=== PATIENT | female | born 1990 | race Caucasian/White ===

== ENCOUNTER → 2016-07-24 | Outpatient (CLI) | payer MEDICAID ==
[~2016-07-24] MED LIST: PREN-92 PO
== END ==
LOC: LABN 17:52
PROVIDERS: ATTEND Family Medicine
DX: Z34.90 Encounter for supervision of normal pregnancy, unspecified, unspecified trimester (principal); N76.0 Acute vaginitis
CPT/HCPCS: 87210; 87220

== ENCOUNTER → 2016-07-31 | Outpatient (CLI) | payer MEDICAID ==
[~2016-07-31] MED LIST changes: +IBUP-1547 PO; +METR500T PO
--- NOTE | 2016-07-31 17:31 | DI ---
Indication: ITS.REASON: Z34.90 PROCEDURE: US OB POSITION: Encounter: Initial Comparison: 04/02/2016 Findings: Limited OB sonogram was performed. Findings are as follows: Position: Vertex Amniotic fluid: 12.2 cm Placenta: Anterior Cervix: Closed, 3.4 cm Heart rate: 117 Impression: Normal limited OB sonogram showing Salazar Vertex position. .
== END ==
LOC: IMA 15:52
PROVIDERS: ATTEND Family Medicine
DX: Z34.93 Encounter for supervision of normal pregnancy, unspecified, third trimester (principal)

== ENCOUNTER 2016-08-01 09:34 | Inpatient (IN) | payer MEDICAID ==
[~2016-08-01] VITALS: Ht 170.2 cm; Wt 91.0 kg
[~2016-08-01 09:34] MED LIST changes: -IBUP-1547 PO; -METR500T PO
[2016-08-01] MEDS ORDERED: METR500T PO (10:50)
[2016-08-01 11:50] VITALS: BP 128/59; PULSE 68; RESP 20; TEMP 98.1
--- OUTSIDE RECORDS SUMMARY | 2016-08-01 12:15 | XMS REPORT | Continuity of Care Document ---
Author Author [facility] Organization [facility] Address Unknown Phone Unavailable Care Team Providers Care Clinical Team Lead Name Role Phone EFRA KOCH M.D. Primary Care Physician [phone] Insurance Providers Payer Name Policy Number Subscriber Name Relationship [facility] Edie [id number] Yajaira Everett 01 Self / Same As Patient Problems Medical Problems Problem Onset Date Status Strep pharyngitis Unknown Active Strep pharyngitis Unknown Active Medications Medication Dose Route Sig Days/Qty Instructions Order Date Discontinued Date Status Neomycin/Polymyxin/Hydrocort 3 Drop EAR THREE TIMES A DAY 10 Days 10/1310/24/10 Discontinued Amoxicillin & Pot Clavulanate 875 Mg PO TWICE A DAY 20 Qty 10/15/10 Discontinued Hydrocodone-Acetaminophen 1 - 2 Tab PO FOUR TIMES DAILY 30 Qty PRN PAIN 10/15/10 03/04/11 Discontinued [None] 04/07/11 10/31/11 Discontinued Paroxetine Hcl 20 Mg PO DAILY 04/07/11 10/31/11 Discontinued Azithromycin 250 Mg PO DIRECTED 6 Qty days. 04/29/11 10/31/11 Discontinued Etonogestrel 68 Mg ID 09/15/13 Active Amoxicillin 500 Mg PO THREE TIMES A DAY For strep 10 Days 09/15/13 Active Social History Social History Problem Response Recorded Date/Time Hx Alcohol Use No 04/29/2011 11:38am Hx Substance Use No 04/29/2011 11:38am Hx Tobacco Use No 10/15/2010 11:35am Smoking Status Former smoker 09/15/2013 9:54pm Query Response Start Date Stop Date Smoking Status Former smoker Hospital Discharge Instructions No hospital discharge instructions. Plan of Care Discharge Date 09/15/13 10:36pm Instructions/Education Provided Strep Throat (ED) Fever in Adults (ED) Prescriptions See Medications Section Functional Status Query Response Date Recorded Home/Living - Prior Functional Level Independent April 27, 2014 9:40am Allergies, Adverse Reactions, Alerts Allergen Type Severity Reaction Status Last Updated CEPHALOSPORIN Allergy Unknown ITCHING Active 02/23/14 Immunizations No immunization records. Vital Signs Acute Vital Signs Vital Response Date/Time Blood Pressure 110/52 mm Hg Blood Pressure Mean 71 mm Hg Temperature (Fahrenheit) 101.3 degrees F (96.0 - 99.9) Temperature (Calculated Celsius) 38.40324 degrees C Temperature Source Oral Pulse Pulse Rate: ED 83 bpm Respiratory Rate 16 breaths per minute (10 - 20) Height (Feet) 5 ft Height (Inches) 6 in. Weight (Pounds) 168 lbs Ambulatory Vital Signs Vital Response Date/Time Height 5 ft 7 in 03/03/2012 11:28am Weight 186 lbs 03/03/2012 11:28am Blood Pressure, Sitting, Left Arm 132/66 mm Hg 03/03/2012 11:28am Body Surface Area 2.02 m2 03/03/2012 11:28am Body Mass Index 29.1 kg/m2 03/03/2012 11:28am Results Test Source Date Result Interp. Ref. Range Comments Alanine Aminotransferase (ALT/SGPT) March 22, 2013 3:35pm 12 U/L N 5- [address] EFRA KOCH [phone] Albumin March 22, 2013 3:35pm 3.0 gm/dL L 3.2-5.[address] EFRA KOCH [phone] Albumin/Globulin Ratio March 22, 2013 3:35pm 0.9 L 1.4-2.[address] EFRA KOCH [phone] Alkaline Phosphatase March 22, 2013 3:35pm 128 U/L H 35-[address] EFRA KOCH [phone] Anion Gap March 22, 2013 3:35pm 11.0 N 6-[address] EFRA KOCH [phone] Aspartate Amino Transf (AST/SGOT) March 22, 2013 3:35pm 14 U/L N 5- [address] EFRA KOCH [phone] BUN/Creatinine Ratio March 22, 2013 3:35pm [address] EFRA KOCH [phone] Basophils # (Auto) March 06, 2012 4:00pm 0.0 K/uL N 0-0.2 COMMENT: 08 Basophils (%) (Auto) March 06, 2012 4:00pm 0.3 % N 0-1 COMMENT: 08 Blood Urea Nitrogen March 22, 2013 3:35pm 7 mg/dL L 8-[address] EFRA KOCH [phone] Calcium Level March 22, 2013 3:35pm 9.5 mg/dL N 8.2-10.[address] EFRA KOCH [phone] Carbon Dioxide Level March 22, 2013 3:35pm 21 mEq/L L 22-[address] EFRA KOCH [phone] Chlamydia DNA Probe March 06, 2012 5:47pm See separate report COMMENT: 08 Chloride Level March 22, 2013 3:35pm 107 mEq/L N 98-[address] EFRA KOCH [phone] Creatinine March 22, 2013 3:35pm 0.56 mg/dL L 0.9-1.[address] EFRA KOCH [phone] Eosinophils # (Auto) March 06, 2012 4:00pm 0.3 K/uL N 0-0.8 COMMENT : 08 Eosinophils (%) (Auto) March 06, 2012 4:00pm 3.3 % N 0-7.0 COMMENT: 08 Ethyl Alcohol Level April 07, 2011 6:15am 122.8 mg/dl H 0-10 A level below 10 mg/dl should be considered negative. Free Thyroxine Index January 04, 1999 7:23am 5.30 N 3.6-14.0 Globulin March 22, 2013 3:35pm 3.5 gm/dL H 2.0-3.[address] EFRA KOCH [phone] Glucose Level January 04, 1999 7:23am 99 mg/dL N 60-100 Hematocrit March 06, 2012 4:00pm 46.5 % N 38.0-47.0 COMMENT: 08 Hemoglobin March 06, 2012 4:00pm 15.5 g/dL N 12.0-16.0 COMMENT: 08 Human Chorionic Gonadotropin, Quant March 06, 2012 4:00pm 29.88 mIU/mL INTERPRETATION:SUFFICIENT VARIABILITY EXISTS AMONG hCG CONCENTRATIONS THAT A SINGLE VALUE CANNOT BE USED TO DATE PREGNANCIES ACCURATELY, NOR CAN A SINGLE DETERMINATION BE USED TO PREDICT VIABILITY. RANGE OF EXPECTED VALUES: TIME POST CONCEPTION COMMON UNITS mIU/mL 7-10 DAYS >3.0 30 DAYS 100.0 TO 5,000.0 40 DAYS >2000.0 10 WEEKS 50,000.0 TO 140,000.0 14 WEEKS 10,000.0 TO 50,000.0 Immature Blood Cells March 06, 2012 4:00pm 0.1 K/uL N 0-0.4 COMMENT : 08 Lipase December 08, 2007 9:40am 23 U/L N 8-57 COMMENTS?ROOM 2 IV ORDERED Lymphocytes # (Auto) March 06, 2012 4:00pm 2.4 K/uL N 0.9-5.2 COMMENT: 08 Lymphocytes (%) (Auto) March 06, 2012 4:00pm 26.9 % N 16.0-44.0 COMMENT: 08 Mean Corpuscular Hemoglobin March 06, 2012 4:00pm 32.0 pg N 26.0- 33.0 COMMENT: 08 Mean Corpuscular Hemoglobin Concent March 06, 2012 4:00pm 33.3 g/dL N 31.0-36.0 COMMENT: 08 Mean Corpuscular Volume March 06, 2012 4:00pm 96.2 fL N 82.0-100.0 COMMENT: 08 Mean Platelet Volume March 06, 2012 4:00pm 7.6 fL N 7.0-11.0 COMMENT : 08 Monocytes # (Auto) March 06, 2012 4:00pm 0.6 K/uL N 0.16-1.0 COMMENT : 08 Monocytes (%) (Auto) March 06, 2012 4:00pm 6.3 % N 2.0-9.0 COMMENT: 08 Neisseria gonorrhoeae DNA Probe March 06, 2012 5:47pm See separate report COMMENT: 08 Neutrophils # (Auto) March 06, 2012 4:00pm 5.5 K/uL N 1.9-8.0 COMMENT: 08 Neutrophils (%) (Auto) March 06, 2012 4:00pm 61.6 % N 42.0-75.0 COMMENT: 08 Platelet Count March 06, 2012 4:00pm 306 K/uL N 130-400 COMMENT: 08 Potassium Level March 22, 2013 3:35pm 4.0 mEq/L N 3.5-5.[address] EFRA KOCH [phone] Random Glucose March 22, 2013 3:35pm 83 mg/dL N 65-[address] EFRA KOCH [phone] Red Blood Count March 06, 2012 4:00pm 4.84 M/uL N 4.20-5.40 COMMENT : 08 Red Cell Distribution Width March 06, 2012 4:00pm 13.2 % N 11.5-14.5 COMMENT: 08 Sodium Level March 22, 2013 3:35pm 135 mEq/L N 133-[address] EFRA KOCH [phone] Thyroid Stimulating Hormone (TSH) January 04, 1999 7:23am 3.8 uIU/ml N 0.47-6.9 Thyroxine (T4) January 04, 1999 7:23am 5.3 ug/dl L 5.5-13.5 Total Bilirubin March 22, 2013 3:35pm 0.4 mg/dL N 0.1-1.[address] EFRA KOCH [phone] Total Protein March 22, 2013 3:35pm 6.5 gm/dL N 6.0-8.[address] EFRA KOCH [phone] Triiodothyronine (T3) Uptake January 04, 1999 7:23am 31.6 % N 24.0-38.9 Urine Amorphous Sediment March 06, 2012 5:20pm 1+ COMMENT: 08 STRAIGHT CATHLab to draw N SOURCE: URINE, CLEAN CATCH Urine Appearance March 06, 2012 5:20pm Cloudy COMMENT: 08 STRAIGHT CATHLab to draw N SOURCE: URINE, CLEAN CATCH Urine Bacteria March 06, 2012 12:00am Trace /hpf H NONE COMMENT: 08SOURCE: URINE, CATHETER Urine Bilirubin March 06, 2012 5:20pm Negative NEGATIVE COMMENT: 08 STRAIGHT CATHLab to draw N SOURCE: URINE, CLEAN CATCH Urine Color March 06, 2012 5:20pm Yellow COMMENT: 08 STRAIGHT CATHLab to draw N SOURCE: URINE, CLEAN CATCH Urine Epithelial Cells March 06, 2012 5:20pm Moderate /lpf COMMENT: 08 STRAIGHT CATHLab to draw N SOURCE: URINE, CLEAN CATCH Urine Glucose (UA) March 06, 2012 5:20pm Negative NEGATIVE COMMENT : 08 STRAIGHT CATHLab to draw N SOURCE: URINE, CLEAN CATCH Urine Human Chorionic Gonadotropin April 07, 2011 6:15am Negative NEGATIVE COMMENT: 05Lab to draw N If applicable:TELEPHONE/VERBAL order by (other than ) W Urine Ketones March 06, 2012 5:20pm Negative NEGATIVE COMMENT: 08 STRAIGHT CATHLab to draw N SOURCE: URINE, CLEAN CATCH Urine Leukocyte Esterase March 06, 2012 5:20pm Negative NEGATIVE COMMENT: 08 STRAIGHT CATHLab to draw N SOURCE: URINE, CLEAN CATCH Urine Nitrate March 06, 2012 5:20pm Negative NEGATIVE COMMENT: 08 STRAIGHT CATHLab to draw N SOURCE: URINE, CLEAN CATCH Urine Occult Blood March 06, 2012 5:20pm 1+ H NEGATIVE COMMENT: 08 STRAIGHT CATHLab to draw N SOURCE: URINE, CLEAN CATCH Urine Other December 08, 2007 8:45am Rare budding yeast COMMENTS? ROOM 2` If applicable:TELEPHONE/VERBAL order by (other than ) E SOURCE: URINE, CLEAN CATCH HAS SPECIMEN BEEN OBTAINED/COLLECTED? Y Urine Protein March 06, 2012 5:20pm Negative NEGATIVE COMMENT: 08 STRAIGHT CATHLab to draw N SOURCE: URINE, CLEAN CATCH Urine RBC March 06, 2012 5:20pm 0-1 /hpf NONE COMMENT: 08 STRAIGHT CATHLab to draw N SOURCE: URINE, CLEAN CATCH Urine Specific [place] March 06, 2012 5:20pm 1.020 1.005-1.030 COMMENT: 08 STRAIGHT CATHLab to draw N SOURCE: URINE, CLEAN CATCH Urine Urobilinogen March 06, 2012 5:20pm 0.2 E.U./dL 0.2-1.0 COMMENT: 08 STRAIGHT CATHLab to draw N SOURCE: URINE, CLEAN CATCH Urine WBC March 06, 2012 5:20pm 0-1 /hpf NONE COMMENT: 08 STRAIGHT CATHLab to draw N SOURCE: URINE, CLEAN CATCH Urine pH March 06, 2012 5:20pm 7.0 4.5-8.0 COMMENT: 08 STRAIGHT CATHLab to draw N SOURCE: URINE, CLEAN CATCH White Blood Count March 06, 2012 4:00pm 9.0 K/uL N 5.0-10.0 COMMENT : 08 Lab Scanned Report March 31, 2013 2:49pm REFERENCE LAB REPORT [id number] Glomerular Filtration Rate Calc March 22, 2013 3:35pm > 60.00 mL/min MULTIPLY RESULT BY 1.210 IF THE PATIENT IS -AMERICANUnits are mL/ min/1.73 m2 > 60 Normal kidney function 30-59 Moderately decreased kidney function 15-29 Severely decreased kidney function <15 End-stage kidney failure Vaginitis Screen Culture Cervix March 06, 2012 5:47pm Urine Culture Urine,Clean Catch March 06, 2012 12:00am Procedures No known history of procedures. Encounters Encounter Location Date/Time Discharged Recurring [facility] 04/27/14 8:37am Departed Emergency Room [facility] 09/15/13 9:49pm
--- OUTSIDE RECORDS SUMMARY | 2016-08-01 12:15 | XMS REPORT | Continuity of Care Document ---
Author Author [facility] Address Unknown Phone Unavailable Care Team Providers Care Heading Repairer Name Role Phone EFRA KOCH M.D. Primary Care Physician [phone] Insurance Providers Guarantor Yajaira Everett Address [address] [place] [address] Payer [facility] Policy Number [id number] Subscriber's Name Yajaira Everett Relationship 01 Self / Same As Patient Problems Active Problems Medical Problem Onset Date Status Strep pharyngitis Unknown Acute Strep pharyngitis Unknown Acute Past Problems Medical Problem Onset Date Acute headache Unknown Frontal sinusitis Unknown Pelvic pain Unknown Unknown Medications Current Home Medications Medication Dose Units Route Directions Days Qty Instructions Start Date Amoxicillin 500 Mg Cap 500 Mg Oral Three Times A Day for Strep 10 Days 09/15/13 Amoxicillin & Pot Clavulanate (Augmentin) 875 Mg Tab 875 Mg Oral Twice A Day for Bactinf 14 Tablet 08/15/15 Etonogestrel (Implanon) 68 Mg Imp 68 Mg Intradermal 09/15/13 Tramadol Hcl 50 Mg Tab 50 Mg Oral Every 8 Hours As Needed as needed for Pain 12 Tablet 08/15/15 Past Home Medications Medication Directions Ordered Status Amoxicillin & Pot Clavulanate (Augmentin) 875 Mg Tab, 875 Mg Oral Twice A Day 10/15/10 Discontinued Azithromycin (Zithromax Z-Cruz) 1 Tab Tab, 250 Mg Oral As Directed 04/29/11 Discontinued Hydrocodone-Acetaminophen (Lortab 5/500) Tab, 1 - 2 Tab Oral Four Times Daily 10/15/10 Discontinued Neomycin/Polymyxin/Hydrocort (Cortisporin Otic) 10 Ml Susp, 3 Drop Affected Ear Three Times A Day 10/13/10 Discontinued None , 04/07/11 Discontinued Paroxetine Hcl (Paxil) 20 Mg Tab, 20 Mg Oral Daily 04/07/11 Discontinued Social History Social History Problem Response Recorded Date/Time Onset Date Status Hx Alcohol Use No 04/29/2011 11:38am Not Applicable Not Applicable Hx Substance Use No 04/29/2011 11:38am Not Applicable Not Applicable Hx Tobacco Use No 10/15/2010 11:35am Not Applicable Not Applicable Smoking Status Heavy Tobacco Smoker 05/19/2016 11:00pm Not Applicable Not Applicable Query Response Start Date Stop Date Smoking Status Heavy Tobacco Smoker Hospital Discharge Instructions Discharge Instructions Nursing Instructions Follow up Appointment #1 Call for Appointment: No Comment: keep scheduled appt Signs of Labor: Cx 5-10 mins apart/1 hour, Cx stronger/more freq, Cramping/continuous, Cramping/more intense, Low back ache, Pelvic pressure, Increase in vaginal disch, Bloody show, SROM/leaking fluid Signs of Complications: Decreased movement, Visual disturbances, Greenish vag. discharge, Headache-unusual/severe, Foul/irritating vag. disc, Increased edema, Facial edema, Muscular irritability, Convulsions, Epigastric pain, Persistent vomiting, Chills/fever, Diarrhea, Burning/freq with urin., Severe abdominal pain, Vaginal bleeding Diet: As Tolerated Other Activity: per ER instructions Plan of Care Discharge Date 05/20/16 1:34am Disposition 01 HOME, SELF-CARE Instructions/Education Provided OBG Signs of Labor Abdominal Pain (ED) Prescriptions See Medication Section Care Plan and Goals See Discharge Instructions Section Functional Status No functional status results. Allergies, Adverse Reactions, Alerts Allergen Type Severity Reaction Status Last Updated Cephalosporins ([id number]) Allergy Unknown itching Active 08/15/15 Immunizations Immunization Event Date Type Not Given Reason Dose Number Lot Number Assistant Accounting Manager Tetanus, Diphtheria Vaccine 04/07/11 Administered 1 Vital Signs Acute Vital Signs Vital Response Date/Time Blood Pressure 148/60 mm Hg 05/19/2016 10:44pm Blood Pressure Mean 89 mm Hg 05/19/2016 10:44pm Temperature (Fahrenheit) 97.9 degrees F (96.0 - 99.9) 05/19/2016 10:44pm Temperature (Calculated Celsius) 36.41448 degrees C 05/19/2016 10:44pm Temperature Source Oral 05/19/2016 10:44pm Pulse Pulse Rate: ED 79 bpm 05/19/2016 10:44pm Respiratory Rate 20 breaths per minute (10 - 20) 05/19/2016 10:44pm Height (Feet) 5 ft 08/15/2015 1:46pm Height (Inches) 6.0 in. 08/15/2015 1:46pm Weight (Pounds) 181.0 lbs 08/15/2015 1:46pm Ambulatory Vital Signs Vital Response Date/Time Height 5 ft 7 in 03/03/2012 11:28am Weight 186 lbs 03/03/2012 11:28am Blood Pressure, Sitting, Left Arm 132/66 mm Hg 03/03/2012 11:28am Body Surface Area 2.02 m2 03/03/2012 11:28am Body Mass Index 29.1 kg/m2 03/03/2012 11:28am Pulse Oximetry Pulse Oximetry 03/03/2012 11:28am Results Laboratory Results Test Name Result Units Flags Reference Collection Date/Time Result Date/ Time Comments White Blood Count 15.2 K/uL H 5.0-10.0 05/19/2016 11:15pm 05/19/2016 11: 29pm Red Blood Count 3.87 M/uL L 4.20-5.40 05/19/2016 11:15pm 05/19/2016 11: 29pm Hemoglobin 12.4 g/dL 12.0-16.0 05/19/2016 11:15pm 05/19/2016 11:29pm Hematocrit 35.5 % L 38.0-47.0 05/19/2016 11:15pm 05/19/2016 11:29pm Mean Corpuscular Volume 91.7 fL 82.0-100.0 05/19/2016 11:15pm 2016 11:29pm Mean Corpuscular Hemoglobin 32.0 pg 26.0-33.0 05/19/2016 11:15pm 2016 11:29pm Mean Corpuscular Hemoglobin Concent 34.9 g/dL 31.0-36.0 05/19/2016 11: 15pm 05/19/2016 11:29pm Red Cell Distribution Width 13.2 % 11.5-14.5 05/19/2016 11:15pm 2016 11:29pm RDW Standard Deviation 43.7 fL 36.4-46.3 05/19/2016 11:15pm 05/19/2016 11:29pm Platelet Count 255 K/uL 130-400 05/19/2016 11:1505/19/2016 11:29pm Mean Platelet Volume 9.5 fL 7.0-11.0 05/19/2016 11:15pm 05/19/2016 11: 29pm Neutrophils (%) (Auto) 71.0 % 42.0-75.0 05/19/2016 11:15pm 05/19/2016 11:29pm Lymphocytes (%) (Auto) 20.8 % 16.0-44.0 05/19/2016 11:15pm 05/19/2016 11:29pm Monocytes (%) (Auto) 5.8 % 2.0-9.0 05/19/2016 11:15pm 05/19/2016 11: 29pm Eosinophils (%) (Auto) 1.8 % 0-7.0 05/19/2016 11:15pm 05/19/2016 11: 29pm Basophils (%) (Auto) 0.3 % 0-1 05/19/2016 11:05/19/2016 11:29pm Immature Granulocyte % (Auto) 0.3 % 0-0.5 05/19/2016 11:15pm 2016 11:29pm Nucleated Red Blood Cells % 0.0 /100WBC 0-0 05/19/2016 11:15pm 2016 11:29pm Neutrophils # (Auto) 10.8 K/uL H 1.9-8.0 05/19/2016 11:15pm 05/19/2016 11:29pm Lymphocytes # (Auto) 3.2 K/uL 0.9-5.2 05/19/2016 11:15pm 05/19/2016 11: 29pm Monocytes # (Auto) 0.9 K/uL 0.16-1.0 05/19/2016 11:15pm 05/19/2016 11: 29pm Eosinophils # (Auto) 0.3 K/uL 0-0.8 05/19/2016 11:15pm 05/19/2016 11: 29pm Basophils # (Auto) 0.1 K/uL 0-0.2 05/19/2016 11:15pm 05/19/2016 11: 29pm Immature Granulocyte # (Auto) 0.04 K/uL 0-0.40 05/19/2016 11:15pm 05/19 11:29pm Nucleated Red Blood Cells # 0.00 K/uL 0.0-0.012 05/19/2016 11:15pm 11:29pm Urine Color YELLOW 05/19/2016 11:15pm 05/19/2016 11:30pm Urine Appearance CLEAR 05/19/2016 11:15pm 05/19/2016 11:30pm Urine Glucose (UA) NEGATIVE NEGATIVE 05/19/2016 11:15pm 05/19/2016 11 :30pm Urine Bilirubin NEGATIVE NEGATIVE 05/19/2016 11:15pm 05/19/2016 11: 30pm Urine Ketones NEGATIVE NEGATIVE 05/19/2016 11:15pm 05/19/2016 11: 30pm Urine Specific [place] <=1.005 1.005-1.030 05/19/2016 11:15pm 2016 11:30pm Urine Occult Blood TRACE-INTACT NEGATIVE 05/19/2016 11:15pm 2016 11:30pm Urine pH 7.0 4.5-8.0 05/19/2016 11:15pm 05/19/2016 11:30pm Urine Protein NEGATIVE NEGATIVE 05/19/2016 11:15pm 05/19/2016 11: 30pm Urine Urobilinogen 0.2 E.U./dL 0.2-1.0 05/19/2016 11:15pm 05/19/2016 11 :30pm Urine Nitrate NEGATIVE NEGATIVE 05/19/2016 11:15pm 05/19/2016 11: 30pm Urine Leukocyte Esterase NEGATIVE NEGATIVE 05/19/2016 11:15pm 2016 11:30pm Urine RBC 0-1 /hpf NONE 05/19/2016 11:15pm 05/19/2016 11:42pm Urine WBC NONE /hpf NONE 05/19/2016 11:15pm 05/19/2016 11:42pm Urine Epithelial Cells 5-10 /lpf 05/19/2016 11:15pm 05/19/2016 11: 42pm Urine Bacteria NONE /hpf NONE 05/19/2016 11:15pm 05/19/2016 11:42pm Random Glucose 113 mg/dL 65-115 05/19/2016 11:15pm 05/20/2016 12:03am Blood Urea Nitrogen 6 mg/dL L 8-25 05/19/2016 11:15pm 05/20/2016 12: 03am Creatinine 0.46 mg/dL L 0.9-1.6 05/19/2016 11:15pm 05/20/2016 12:03am Glomerular Filtration Rate Calc 162.95 mL/min 05/19/2016 11:15pm 12:03am MULTIPLY RESULT BY 1.210 IF THE PATIENT IS -KENYAN Units are mL/min/1.73 m2 > 60 Normal kidney function 30-59 Moderately decreased kidney function 15-29 Severely decreased kidney function <15 End-stage kidney failure BUN/Creatinine Ratio 13.0 05/19/2016 11:15pm 05/20/2016 12:03am Sodium Level 133 mEq/L 133-145 05/19/2016 11:15pm 05/20/2016 12:03am Potassium Level 3.1 mEq/L L 3.5-5.1 05/19/2016 11:15pm 05/20/2016 12: 03am Chloride Level 110 mEq/L 98-116 05/19/2016 11:15pm 05/20/2016 12:03am Carbon Dioxide Level 22 mEq/L 22-34 05/19/2016 11:15pm 05/20/2016 12: 03am Anion Gap 4.1 L 6-13 05/19/2016 11:15pm 05/20/2016 12:03am Calcium Level 8.6 mg/dL 8.2-10.6 05/19/2016 11:15pm 05/20/2016 12:03am Procedures Procedure Status Date Provider(s) THER/PROPH/DIAG INJ IV PUSH Completed 08/15/15 CAMILLE AMEZCUA M.D. TX/PRO/DX INJ NEW DRUG ADDON Completed 08/15/15 CAMILLE AMEZCUA M.D. THER/PROPH/DIAG INJ SC/IM Completed 08/15/15 CAMILLE AMEZCUA M.D. Encounters Encounter Location Arrival/Admit Date Discharge/Depart Date Attending Provider Discharged Inpatient (obs) [facility] 05/20/16 12:34am 1:34am HUGO RASMUSSEN M.D. Registered Referred [facility] 10/17/15 7:08am EFRA KOCH M.D. Departed Emergency Room [facility] 08/15/15 1:46pm 3:16pm CAMILLE AMEZCUA M.D. Discharged Recurring [facility] 04/27/14 8:37am 06/11/14 11:59pm EFRA KOCH M.D. Departed Emergency Room [facility] 09/15/13 9:49pm 10:36pm GABY DIAS M.D.
--- OUTSIDE RECORDS SUMMARY | 2016-08-01 12:15 | XMS REPORT | Continuity of Care Document ---
Author Author [facility] Organization [facility] Address Unknown Phone Unavailable Allergies Medications Problems Procedures Results Test Result Range URINALYSIS WITH MICROSCOPIC - 10/24/12 21:50 UA LEUKOCYTE ESTERASE DIPSTICK TRACE NEGATIVE UA NITRITE DIPSTICK NEGATIVE NEGATIVE UA PROTEIN DIPSTICK NEGATIVE NEGATIVE UA GLUCOSE DIPSTICK NEGATIVE NEGATIVE UA KETONE DIPSTICK NEGATIVE NEGATIVE UA UROBILINOGEN DIPSTICK NORMAL NORMAL UA BILIRUBIN DIPSTICK NEGATIVE NEGATIVE UA BLOOD DIPSTICK NEGATIVE NEGATIVE UA BACTERIA 1+ NEGATIVE UA CALCIUM OXALATE CRYSTALS PRESENT NEGATIVE UA EPITHELIAL CELLS 5+ epi/hpf 0 - 1+ UA MUCUS 1+ NEG TO 1+ UA RBC 0-3 rbc/hpf 0 - 3 UA VOLUME FOR EXAM 12.0 mL (12mL STD) UA WBC 2-5 wbc/hpf 0 - 5 UA SPECIFIC GRAVITY 1.025 1.015-1.025 UR PH 6.0 5.0-7.0 Encounters ACCT No. Visit Date/Time Discharge Status Pt. Type Provider Facility Loc./Unit Complaint [id number] 10/24/2012 21:50:00 2012 23:30:00 DIS Emergency Imtiaz Jay [facility] DINESH
--- OUTSIDE RECORDS SUMMARY | 2016-08-01 12:15 | XMS REPORT | Continuity of Care Document ---
Author Author [facility] Organization [facility] Address Unknown Phone Unavailable Care Team Providers Care Preschool Teacher Assistant Name Role Phone EFRA KOCH M.D. Primary Care Physician [phone] Insurance Providers Payer Name Policy Number Subscriber Name Relationship [facility] [id number] Yajaira Everett 01 Self / Same As Patient Chief Complaint and Reason for Visit Chief Complaint Medical Problem Minor Reason for Visit [id number] Problems Medical Problems Problem Onset Date Status [...] 500 Mg PO THREE TIMES A DAY 10 Days 09/15/13 Active Social History Social History Problem Response Recorded Date/Time Hx Alcohol Use No 04/29/2011 11:38am Hx Substance Use No 04/29/2011 11:38am Hx Tobacco Use No 10/15/2010 11:35am Smoking Status Former smoker 09/15/2013 9:54pm Query Response Start Date Stop Date Smoking Status Former smoker Hospital Discharge Instructions No hospital discharge instructions. Plan of Care Discharge Date 09/15/13 10:36pm Disposition 01 HOME, SELF-CARE Condition at Discharge Stable Instructions/Education Provided Strep Throat (ED) Fever in Adults (ED) Prescriptions See Medications Section Referrals EFRA KOCH M.D. Functional Status No functional status results. Allergies, Adverse Reactions, Alerts Allergen Type Severity Reaction Status Last Updated Cephalosporin Allergy Unknown ITCHING Active 03/06/12 Immunizations No immunization records. Vital Signs Acute Vital Signs Vital Response Date/Time Blood Pressure / 09/15/2013 10:26pm Blood Pressure Mean 71 mm Hg 09/15/2013 10:26pm Pulse 09/15/2013 10:26pm Pulse Rate: ED 83 bpm 09/15/2013 10:26pm Respiratory Rate 16 breaths per minute (10 - 20) 09/15/2013 10:26pm Ambulatory Vital Signs Vital Response Date/Time Height 5 ft 7 in 03/03/2012 11:28am Weight 186 lbs 03/03/2012 11:28am Blood Pressure, Sitting, Left Arm 132/66 mm Hg 03/03/2012 11:28am Body Surface Area 2.02 m2 03/03/2012 11:28am Body Mass Index 29.1 kg/m2 03/03/2012 11:28am Results Test Source Date Result Interp. Ref. Range Comments Vaginitis Screen Culture Cervix March 06, 2012 5:47pm Urine Culture Urine,Clean Catch March 06, 2012 12:00am Procedures No known history of procedures. Encounters Encounter Location Date/Time Departed Emergency Room [facility] 09/15/13 9:49pm Recent Diagnosis
--- OUTSIDE RECORDS SUMMARY | 2016-08-01 12:15 | XMS REPORT | Continuity of Care Document ---
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 Primary Care Physician [phone] Insurance Providers Guarantor Yajaira Everett Address [address] [place] [address] Payer [facility] Policy Number [id number] Subscriber's Name Yajaira Everett Relationship 01 Self / Same As Patient Payer Other1 Policy Number [id number] Subscriber's Name Yajaira Everett Relationship 01 Self / Same As Patient Group Number [id number] Chief Complaint and Reason for Visit Chief Complaint Headache Reason for Visit Acute headache Frontal sinusitis Problems Active Problems Medical Problem Onset Date Status Strep pharyngitis Unknown Acute Strep pharyngitis Unknown Acute Past Problems Medical Problem Onset Date Acute headache Unknown Frontal sinusitis Unknown Medications Current Home Medications Medication Dose [...] Not Applicable Smoking Status Heavy Tobacco Smoker 08/15/2015 1:50pm Not Applicable Not Applicable Query Response Start Date Stop Date Smoking Status Heavy Tobacco Smoker Hospital Discharge Instructions No hospital discharge instructions. Plan of Care Discharge Date 08/15/15 3:16pm Disposition 01 HOME, SELF-CARE Condition at Discharge Improved/Stable Instructions/Education Provided Sinusitis (ED) Acute Headache (ED) Prescriptions See Medication Section Referrals EFRA KOCH M.D. Address: [address] [place] [address] Additional Instructions/Education Complete antibiotic course. Use Ibuprofen up to 800mg 3x/day as needed for pain. Use Tramadol for severe pain. Return to the ER if with worsening headache , persistent vomiting, neck pain or change in mental status. Functional Status No functional status results. Allergies, Adverse Reactions, Alerts Allergen Type Severity Reaction Status Last Updated Cephalosporins Allergy Unknown itching Active 08/15/15 Immunizations Immunization Event Date Type Not Given Reason Dose Number Lot Number Sericulture Teacher Tetanus, Diphtheria Vaccine 04/07/11 Administered 1 Vital Signs Acute Vital Signs Vital Response Date/Time Blood Pressure 111/53 mm Hg 08/15/2015 2:54pm Blood Pressure Mean 72 mm Hg 08/15/2015 2:54pm Temperature (Fahrenheit) 98.0 degrees F (96.0 - 99.9) 08/15/2015 1:46pm Temperature (Calculated Celsius) 36.06487 degrees C 08/15/2015 1:46pm Temperature Source Oral 08/15/2015 1:46pm Pulse Pulse Rate: ED 78 bpm 08/15/2015 2:54pm Respiratory Rate 16 breaths per minute (10 - 20) 08/15/2015 2:54pm Height (Feet) 5 ft 08/15/2015 1:46pm Height (Inches) 6.0 in. 08/15/2015 1:46pm Weight (Pounds) 181.0 lbs 08/15/2015 1:46pm Height 5 ft 6 in 08/15/2015 1:46pm Weight 181 lb 08/15/2015 1:46pm Body Mass Index 29.2 kg/m^2 08/15/2015 1:46pm Ambulatory Vital Signs Vital Response [...] Result Date/ Time Comments White Blood Count 13.0 K/uL H 5.0-10.0 08/15/2015 2:15pm 08/15/2015 2: 27pm Red Blood Count 4.63 M/uL 4.20-5.40 08/15/2015 2:15pm 08/15/2015 2: 27pm Hemoglobin 14.8 g/dL 12.0-16.0 08/15/2015 2:1508/15/2015 2:27pm Hematocrit 42.6 % 38.0-47.0 08/15/2015 2:15pm 08/15/2015 2:27pm Mean Corpuscular Volume 92.0 fL 82.0-100.0 08/15/2015 2:pm 2015 2:27pm Mean Corpuscular Hemoglobin 32.0 pg 26.0-33.0 08/15/2015 2:15pm 2015 2:27pm Mean Corpuscular Hemoglobin Concent 34.7 g/dL 31.0-36.0 08/15/2015 2: 08/15/2015 2:27pm Red Cell Distribution Width 13.5 % 11.5-14.5 08/15/2015 2:2015 2:27pm RDW Standard Deviation 45.6 fL 36.4-46.3 08/15/2015 2:08/15/2015 2 :27pm Platelet Count 303 K/uL 130-400 08/15/2015 2:08/15/2015 2:27pm Mean Platelet Volume 9.0 fL 7.0-11.0 08/15/2015 2:08/15/2015 2: 27pm Neutrophils (%) (Auto) 68.3 % 42.0-75.0 08/15/2015 2:08/15/2015 2: 27pm Lymphocytes (%) (Auto) 20.8 % 16.0-44.0 08/15/2015 2:08/15/2015 2: 27pm Monocytes (%) (Auto) 7.3 % 2.0-9.0 08/15/2015 2:08/15/2015 2:27pm Eosinophils (%) (Auto) 2.9 % 0-7.0 08/15/2015 2:08/15/2015 2:27pm Basophils (%) (Auto) 0.5 % 0-1 08/15/2015 2:08/15/2015 2:27pm Immature Granulocyte % (Auto) 0.2 % 0-0.5 08/15/2015 2:08/15/2015 2:27pm Nucleated Red Blood Cells % 0.0 /100WBC 0-0 08/15/2015 2:2015 2:27pm Neutrophils # (Auto) 8.8 K/uL H 1.9-8.0 08/15/2015 2:08/15/2015 2: 27pm Lymphocytes # (Auto) 2.7 K/uL 0.9-5.2 08/15/2015 2:08/15/2015 2: 27pm Monocytes # (Auto) 0.9 K/uL 0.16-1.0 08/15/2015 2:08/15/2015 2: 27pm Eosinophils # (Auto) 0.4 K/uL 0-0.8 08/15/2015 2:08/15/2015 2: 27pm Basophils # (Auto) 0.1 K/uL 0-0.2 08/15/2015 2:08/15/2015 2:27pm Immature Granulocyte # (Auto) 0.03 K/uL 0-0.40 08/15/2015 2:2015 2:27pm Nucleated Red Blood Cells # 0.00 K/uL 0.0-0.012 08/15/2015 2:08/14 2:27pm Random Glucose 94 mg/dL 65-115 08/15/2015 2:08/15/2015 2:34pm Blood Urea Nitrogen 10 mg/dL 8-25 08/15/2015 2:08/15/2015 2:34pm Creatinine 0.69 mg/dL L 0.9-1.6 08/15/2015 2:08/15/2015 2:34pm Glomerular Filtration Rate Calc 102.84 mL/min 08/15/2015 2:08/14 2:34pm MULTIPLY RESULT BY 1.210 IF THE PATIENT IS -IRISH Units are mL/min/1.73 m2 > 60 Normal kidney function 30-59 Moderately decreased kidney function 15-29 Severely decreased kidney function <15 End-stage kidney failure BUN/Creatinine Ratio 14.5 08/15/2015 2:08/15/2015 2:34pm Sodium Level 138 mEq/L 133-145 08/15/2015 2:08/15/2015 2:34pm Potassium Level 3.9 mEq/L 3.5-5.1 08/15/2015 2:08/15/2015 2:34pm Chloride Level 107 mEq/L 98-116 08/15/2015 2:08/15/2015 2:34pm Carbon Dioxide Level 27 mEq/L 22-34 08/15/2015 2:08/15/2015 2: 34pm Anion Gap 7.9 6-13 08/15/2015 2:08/15/2015 2:34pm Calcium Level 9.0 mg/dL 8.2-10.6 08/15/2015 2:08/15/2015 2:34pm Total Protein 6.5 gm/dL 6.0-8.4 03/22/2013 3:35pm 03/22/2013 4:41pm Albumin 3.0 gm/dL L 3.2-5.0 03/22/2013 3:35pm 03/22/2013 4:41pm Globulin 3.5 gm/dL H 2.0-3.0 03/22/2013 3:35pm 03/22/2013 4:41pm Albumin/Globulin Ratio 0.9 L 1.4-2.4 03/22/2013 3:35pm 03/22/2013 4: 41pm Total Bilirubin 0.4 mg/dL 0.1-1.3 03/22/2013 3:35pm 03/22/2013 4:41pm Alkaline Phosphatase 128 U/L H 35-125 03/22/2013 3:35pm 03/22/2013 4: 41pm Aspartate Amino Transf (AST/SGOT) 14 U/L 5-40 03/22/2013 3:35pm 2012 4:41pm Alanine Aminotransferase (ALT/SGPT) 12 U/L 5-40 03/22/2013 3:35pm 03/22 4:41pm Procedures No known history of procedures. Encounters Encounter Location Arrival/Admit Date Discharge/Depart Date Attending Provider Departed Emergency Room [facility] 08/15/15 1:46pm 3:16pm CAMILLE AMEZCUA M.D. Discharged Recurring [facility] 04/27/14 8:37am 06/11/14 11:59pm EFRA KOCH M.D. Departed Emergency Room [facility] 09/15/13 9:49pm 10:36pm GABY DIAS M.D. Registered Referred [facility] 03/22/13 3:27pm MAZIN GOODWIN M.D. Recent Diagnosis
[2016-08-01 13:16] VITALS: Ht 170.2 cm; Wt 91.0 kg
--- NOTE | 2016-08-01 14:11 | PNF ---
OB OBSERVATION NOTE DATE OF VISIT: 08/01/2016 This is a 26-year-old white female, G3, P1, at 37 weeks 1 day gestational age. She paged me at 7:55 this morning reporting that she woke up with vaginal bleeding and was still having some. She also reported that she couldn't tell if baby was moving normally are not. I asked her to come in immediately to be evaluated. She stated she lived in [place] and she would here eventually. When she arrived we placed her on the monitor and we had a reactive heart strip. She was still having a slight amount of bleeding with a clean pad producing about at dime size of blood. Uterus was soft and nontender. There are occasional contractions. I had the nurse check her and she was 2 cm and vertex and repeat it in an hour with an unchanged cervix. So she is not currently in labor. She may be early labor. She had a check by Dr. Smith yesterday and difficulty figuring out vertex or breech, so part of the bleeding may be from the check. She also had intercourse last night and that could be a reason for the bleeding. She does not have placenta previa, so that has been ruled out as a possible cause. During the course of monitoring, she had a prolonged deceleration of about 2-1/2 minutes. Otherwise, the heart strips have been reactive. She has one previous vaginal delivery with a rapid labor as a primip at 37.6 weeks gestational age. For all of the above reasons, we're going to continue to monitor her here, probably overnight. Will continue heart tone continuous monitoring at the moment but may take it off later today if it continues to look good. Will do pad counts to follow for vaginal bleeding. Obviously, if her contractions get stronger and she acts like she is going back into labor, then we will recheck her cervix, but otherwise I am going to try to minimize that because of bleeding. Questions were answered to patient, her and her sister's satisfaction. JHON
--- NOTE | 2016-08-01 15:13 | NUR ---
Shift Summary Pt has been monitored throughout shift for bleeding and FHTs. Pad changed at this time with small amount of light red bleeding on about 1/3 of small pad , about twinkie size, over 4 hours. FHTs have remained reactive after 1 deceleration while in traige. Pt c/o contx and breathes thru occ contx. TOCO adj several times and detect only occ contx. Phone update to Dr Rosales at this time and change of nurses. Will continue with pad count and monitoring.
[2016-08-01] MEDS ORDERED: LR 1,000 ML IV PRN (19:42)
[2016-08-01] MEDS ORDERED: LIDOCAINE 1% (10mg/ml) 2ml SDV ID PRN (19:45)
[2016-08-01] MEDS ORDERED: MAG-AL + SIM LIQUID 30 ML UDC PO PRN ×2 (19:45→21:30)
[2016-08-01] MEDS ORDERED: CALCIUM CARBONATE 500mg Chewable TAB PO PRN ×2 (19:45→21:30)
[2016-08-01] MEDS ORDERED: ACETAMINOPHEN 500 MG TABLET PO PRN ×2 (19:45→21:30)
[2016-08-01] MEDS ORDERED: AMPICILLIN 2 G in NORMAL SALINE 100 ML IV ONE (19:45)
[2016-08-01 20:03] LABS: HCT - HEMATOCRIT 40.2 % (36-46); HGB - HEMOGLOBIN 13.9 GM/DL (12-16); MEAN CORPUSCULAR HGB 31.7 UUG (26-34); MEAN CORPUSCULAR HGB CONC(MCHC 34.6 GM/DL (31-37); MEAN CORPUSCULAR VOLUME 91.8 UM3 (80-100); MEAN PLATELET VOLUME 9.6 UM3 (9.4-12.4); RED BLOOD COUNT 4.38 M/MM3 (4.00-5.20); WBC - WHITE BLOOD COUNT 13.1 T/MM3 (4.5-11.0)
[2016-08-01] MEDS: OXYTOCIN 30 UNIT in D5LR 500 ML IV ONE ×2 (21:26→21:52)
[2016-08-01] MEDS ORDERED: OXYTOCIN 30 UNIT in D5W 500 ML IV ONE (21:26)
[2016-08-01] MEDS ORDERED: DiphenhydrAMINE 25 MG CAPSULE PO PRN (21:30)
[2016-08-01] MEDS ORDERED: MILK OF MAGNESIA 30 ML SUSP PO PRN (21:30)
[2016-08-01] MEDS ORDERED: PHENYLEPHRINE RECTAL SUPPOSITORY RECTALLY PRN (21:30)
[2016-08-01] MEDS ORDERED: HYDROCORTISONE 2.5% CREAM 30 GM RECTALLY PRN (21:30)
[2016-08-01] MEDS: HYDROCODONE/APAP 5 mg/325 mg TABLET PO PRN (21:52)
[2016-08-01] MEDS: IBUPROFEN 800 MG TABLET PO PRN (21:52)
[2016-08-01] MEDS ORDERED: AMPICILLIN 1 G in NORMAL SALINE 100 ML IV SCH (23:45)
--- NOTE | 2016-08-02 00:40 | NUR ---
Progress Note Pt ambulated to bathroom and denied dizziness. Pt voided w/o difficulty. RN educated pt about pericare and pad changes. Pt verbalized understanding and performed self pericare and RN assisted with skin care. Will continue to monitor per plan of care.
[2016-08-02 01:54] VITALS: BP 110/52; PULSE 61; RESP 18; TEMP 98; O2SAT 98
--- NOTE | 2016-08-02 02:28 | NUR ---
Chart Check 24 hour chart check completed
--- NOTE | 2016-08-02 02:28 | NUR ---
Shift Summary Pt's VS stable. Fundus firm, minimal lochia, and voiding w/o difficulty. IVSL. Pt tolerating po fluids and regular diet. Pt up ad margo in room and MC unit. Pain controlled with po pain meds as ordered, Motrin and [place]. Pt providing cares for self and baby with help of FOB at bedside. Call jimenez in reach. Will continue to monitor per plan of care.
[2016-08-02 06:00] VITALS: BP 116/58; PULSE 57; RESP 16; TEMP 98.1; O2SAT 100
[2016-08-02 07:08] LABS: HCT - HEMATOCRIT 39.8 % (36-46); HGB - HEMOGLOBIN 13.5 GM/DL (12-16); MEAN CORPUSCULAR HGB 31.5 UUG (26-34); MEAN CORPUSCULAR HGB CONC(MCHC 33.9 GM/DL (31-37); MEAN CORPUSCULAR VOLUME 92.8 UM3 (80-100); MEAN PLATELET VOLUME 9.6 UM3 (9.4-12.4); RED BLOOD COUNT 4.29 M/MM3 (4.00-5.20); WBC - WHITE BLOOD COUNT 14.7 T/MM3 (4.5-11.0)
--- NOTE | 2016-08-02 07:11 | LDNF ---
DATE OF DELIVERY: 08/01/2016 DIAGNOSES 1. 26-year-old white female, G3, P1, at 37 weeks 1 day gestational age. 2. Vaginal bleeding. 3. Premature rupture of membranes. 4. Spontaneous vaginal delivery. 5. Male infant, Apgars, 2894 g (Nathan Wilson). DELIVERY NOTE This is a patient of Dr. Smith's that paged me at 7:55 this morning complaining of vaginal bleeding and unsure of movement. I had her come in to be evaluated. She lives in [place] and when she came in her cervix was 2 cm and unchanged in an hour. heart tones were reactive. She was having some vaginal bleeding, so we monitored it with pad counts. She had a 2-1/2 minute spontaneous prolonged deceleration and so, because of the bleeding and the deceleration, I kept her in the hospital. heart tones became and remained stable and reassuring. Her bleeding diminished as the day went on. In the evening she wanted to be dismissed to home, but given her history of fast labors and the fact she was still having some vaginal bleeding (even though diminished), I kept her. At 1936 hours her water broke spontaneously. We admitted her, started an IV and since GBS status was done over week ago but not resulted on the chart, we went ahead and started ampicillin for GBS prophylaxis. I checked her cervix and she was 4 cm dilated with a bulging forebag. The father had gone home and so I waited for him to get back before I ruptured the forebag. She had a spontaneous vaginal delivery at 2113 hours from the OA position. She declined any anesthesia. The was bulb suctioned after delivery of the head and then again after delivery of the body. Cord was allowed to drain for about two minutes and was doubly clamped and cut. The 's father cut the cord. The infant was initially placed on the mother's abdomen. Placenta delivered spontaneously and appeared grossly normal. No obvious abruption was noted. I'm going to send it pathology because of the bleeding all day. Perineum was intact. EBL was 250. Maternal blood type is A+ and rubella is immune. She had a pretty rapid progression of labor with rupture of membranes at 1936 hours and time at 2113 hours. At time of dictation mother and are doing well. [facility]
[2016-08-02] MEDS ORDERED: DOCUSATE CALCIUM 240 MG CAPSULE PO SCH (09:00)
--- NOTE | 2016-08-02 09:50 | PNPDOC ---
Progress Note PPD1 Weeks: 37 Days: 1 Rubella: Immune GBS: Not Done/No Results Blood Type:A pos Subjective 08/02/16 Lochia: Minimal Pain: Controlled Voiding: Voiding Nausea and Vomiting: No Nausea/Vomiting Objective Vital Signs Date Time Temp Pulse Resp B/P Pulse Ox O2 Delivery O2 Flow Rate FiO2 08/02/16 06:00 98.1 57 16 116/58 100 Room Air Urine Output: Good, Adequate General: Alert and Oriented Cardiovascular: Regular, Rate, Rhythm Respiratory: Non-labored Respiratory Ausculatation: Clear Bilaterally Abdomen: Fundus Firm Incision: Clean/Dry/Intact Extremities: Non-tender Assessment Plan Routine Care, Continue PNV EFRA KOCH MD August 02, 2016 09:50
[2016-08-02] MEDS: IBUPROFEN 800 MG TABLET PO PRN ×2 (10:14→20:27)
[2016-08-02 10:15] VITALS: BP 133/60; PULSE 67; RESP 18; TEMP 98
[2016-08-02 14:16] VITALS: BP 126/61; PULSE 60; RESP 16; TEMP 97.7; O2SAT 100
[2016-08-02] MEDS ORDERED: IBUP-1547 PO (14:20)
[2016-08-02 20:30] VITALS: BP 119/58; PULSE 65; RESP 18; TEMP 97.8; O2SAT 98
[2016-08-02] MEDS: HYDROCODONE/APAP 5 mg/325 mg TABLET PO PRN (20:51)
== END 2016-08-02 21:40 | disposition home or self-care (01) | DRG 774 ==
LOC: OBOBS 09:34 → MC 09:34 → OBOBS 11:40 → MC 12:11 → OBSVTOIN 19:42 → EDSTATUS 08-14 06:00
PROVIDERS: ADMIT Family Medicine; ATTEND Family Medicine
PROC: 10E0XZZ Delivery of Products of Conception, External Approach (ICD-10-PCS; principal; 2016-08-01)
PROC: 10907ZC Drainage of Amniotic Fluid, Therapeutic from Products of Conception, Via Natural or Artificial Opening (ICD-10-PCS; 2016-08-01)
DX: O67.9 Intrapartum hemorrhage, unspecified (principal); O42.02 Full-term premature rupture of membranes, onset of labor within 24 hours of rupture; O76 Abnormality in fetal heart rate and rhythm complicating labor and delivery; Z3A.37 37 weeks gestation of pregnancy; Z37.0 Single live birth
CPT/HCPCS: 36415; 85027